=== PATIENT | male | born 1935 | race Caucasian/White ===

== ENCOUNTER 2023-01-28 13:23 | Emergency (ER) | payer MEDICARE ==
[~2023-01-28] VITALS: Ht 172.7 cm; Wt 73.9 kg
[2023-01-28 14:14] LABS: Source, Urine Straight Cath
[2023-01-28 14:19] LABS: Appearance, Urine Hazy (Clear); Bilirubin, Urine Neg (Neg); Blood, Urine 5+ (Neg); Color, Urine Yellow (P-Yellow); Glucose Qualitative, Urine 3+ (Neg); Ketones, Urine Neg (Neg); Leukocyte Esterase, Urine Neg (Neg); Nitrite, Urine Neg (Neg); Protein, Urine 2+ (Neg); Specific Gravity, Urine 1.015 (1.003-1.022); Urobilinogen, Urine NORM (Normal)
[2023-01-28 14:28] LABS: Hyaline Casts 0-2 /lpf (0-2); Red Blood Cells, Urine 25-50 /hpf (0-2)
[2023-01-28 14:29] LABS: Squamous Epithelial Cells Rare /hpf (Few)
[2023-01-28 14:30] LABS: Amorphous Light (0-Heavy); Transitional Epithelial Cells Rare /hpf (0-Rare)
[2023-01-28 14:32] LABS: Renal Epithelial Rare /hpf (0-Rare)
[2023-01-28 14:33] LABS: Bacteria Few /hpf; White Blood Cells, Urine 0-2 /hpf (0-5)
[2023-01-28 17:00] VITALS: BP 148/90
== END 2023-01-28 18:20 | disposition home or self-care (01) ==
LOC: ER 13:23
PROVIDERS: Physician Assistant
DX: R33.9 Retention of urine, unspecified (principal); R39.12 Poor urinary stream; Z85.46 Personal history of malignant neoplasm of prostate
CPT/HCPCS: 51702; 51798; 81001; 99283-25